=== PATIENT | male | born 1935 | race Caucasian/White ===

== ENCOUNTER → 2017-05-16 | Outpatient (CLI) | payer OTHER, MEDICARE | LOC: BHLMT 09:00 | PROVIDERS: ATTEND Internal Medicine Cardiovascular Disease | DX: R07.9 Chest pain, unspecified (principal); I25.10 Atherosclerotic heart disease of native coronary artery without angina pectoris | CPT/HCPCS: 78452; 93017; A9500 ==

== ENCOUNTER 2017-06-12 06:38 | Day surgery (SDC) | payer OTHER, MEDICARE ==
[2017-06-12] MEDS ORDERED: FAMOTIDINE 20 MG TAB PO ONE (06:43)
[2017-06-12] MEDS ORDERED: ASPIRIN EC 325 MG TAB PO ONE (06:43)
[2017-06-12] MEDS ORDERED: DIAZEPAM 5 MG TAB PO ONE (06:43)
[2017-06-12] MEDS ORDERED: NS 1,000 ML IV ONE (06:43)
[2017-06-12] MEDS ORDERED: diphenhydrAMINE 25 MG CAP PO ONE (06:43)
--- NOTE | 2017-06-12 07:11 | CPEKG ---
Heart Rate: 62 RR Interval: 968 P-R Interval: 200 QRSD Interval: 84 QT Interval: 424 QTC Interval: 431 P [place]: 65 QRS Granger: -58 T Wave Granger: 57 EKG Severity - ABNORMAL ECG - EKG Impression: SINUS RHYTHM EKG Impression: LEFT ANTERIOR FASCICULAR BLOCK EKG Impression: PROBABLE POSTERIOR INFARCT EKG Impression: NONSPECIFIC T ABNORMALITIES, LATERAL LEADS Electronically Signed By: Pat Bustamante 12-Jun-2017 16:58:37
[2017-06-12 07:23] LABS: PLATELET COUNT 159 10^3/uL (150-400)
[2017-06-12 07:31] LABS: INR 0.99 (0.83-1.16); PROTIME(PATIENT) 13.3 SEC (12.0-15.0)
[2017-06-12] MEDS ORDERED: MIDAZOLAM 2 MG/2 ML VIAL ONE (09:20)
[2017-06-12] MEDS ORDERED: fentaNYL 100 MCG/2 ML INJ ONE (09:20)
[2017-06-12] MEDS ORDERED: LIDOCAINE 1% 300 MG/30 ML SDV ONE (09:20)
[2017-06-12] MEDS ORDERED: IOPAMIDOL (ISOVUE-370) 150 ML BTL IV ONE (09:20)
--- NOTE | 2017-06-12 09:24 | PDPROPOC ---
Sedation Plan of Care Sedation Plan of Care: vital signs stable, mental status noted, patient educated of risks, benefits, alternatives, patient can tolerate sedation ASA Classification: ASA 1 Planned drugs: fentanyl, midazolam Mallampati Score: Class 1 Mallampati Reference Image: Patient passed 3-3-2 rule?: Yes
--- NOTE | 2017-06-12 09:24 | PDHPUP ---
History & Physical Update H&P update statement: This history and physical update is based on an assessment of the patient which was completed after admission or registration (within 24 hours), but prior to the surgery/procedure. H&P update: H&P reviewed & patient examined, no change in patient's condition since H&P completed
[2017-06-12] MEDS ORDERED: HEPARIN 10,000 UNIT/10 ML MDV (1,000 UNIT/ML) ONE (10:04)
[2017-06-12] MEDS ORDERED: ATROPINE SULFATE 1 MG/10 ML SYR IVP PRN (10:42)
[2017-06-12] MEDS ORDERED: OXYCODONE/APAP 5/325 TAB PO PRN (10:42)
[2017-06-12] MEDS ORDERED: HYDROCODONE/APAP 5/325 TAB PO PRN (10:42)
[2017-06-12] MEDS ORDERED: ONDANSETRON 4 MG/2 ML VIAL IVP PRN (10:42)
[2017-06-12] MEDS ORDERED: NITROGLYCERIN 0.4 MG BTL SL PRN (10:42)
--- NOTE | 2017-06-12 11:18 | PDDXCAT ---
Diagnostic Cath Note - . Date: 06/12/17 Dispensing And Measuring Optician: Malcolm Indication: other (Known coronary artery disease. Previous bypass surgery in 2001. 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 Abnormal stress myocardial perfusion imaging study suggesting inferior reversible ischemia.) - Procedure Access: right groin Procedure: left heart catheterization, coronary angiography, left ventriculogram , vein graft injection, SAUER injection, other (Aortic root angiography.) - Materials Left Heart Cath materials: standard multipack (JL4, JR4, pigtail), other (Right coronary bypass graft) - Findings-Left Heart Catheterization LM: Heavily calcified vessel. Bifurcates into the left anterior descending and circumflex distributions. This vessel is subtotaled distally. LAD: Severe proximal disease becoming occluded in the mid segment immediately after the origin of the 1st septal business process modeler and 1st diagonal branch. LCX: Small caliber vessel. There is a single obtuse marginal branch identified. Within the single obtuse marginal branch there is a 90% mid stenosis. RCA: Large caliber dominant vessel. The PDA and 2 posterolateral branches are identified. There is an eccentric 70% lesion in the mid vessel. Competitive flow is noted in the PDA. rSVG: There is an identified saphenous vein graft to the PDA. This contains minimal disease and is patent throughout its course to the PDA. Apparently, the patient has had 2 other bypass grafts. These were not identified either on attempts at selective injection or via a non selective aortic root shot. SAUER: This vessel is patent throughout its course. The distal anastomoses is in the mid LAD with good opacifications of the mid and distal LAD and single diagonal branch. ROSSANA: Visualized non selectively. This was not used in the patient's bypass surgery. EDP: The left ventricular pressure was 139/7/18 mmHg. LVEF: 60 65% without wall motion abnormalities. Wall motion: Normal. Complications: None. Estimated blood loss: <50ml Closure method: Angioseal Assessment: 1. Severe multivessel [place] coronary artery disease as described above which includes subtotal occlusion of the left main and a high-grade mid right coronary artery lesion. 2. Patent saphenous vein graft to the PDA and SAUER to the mid LAD. Occluded vein grafts likely to an obtuse marginal distribution and possibly the diagonal branch. 3. Normal left ventricular systolic function with an ejection fraction of 60 65% without focal wall motion abnormalities. 4. High normal left ventricular end-diastolic pressure. 5. 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 Plan: The patient will be treated with optimal medical therapy. At this time, percutaneous intervention would be high risk with likely little benefit. Intervention: None.
[2017-06-12] MEDS ORDERED: RANOLAZINE 500 MG TAB.ER PO SCH (21:00)
== END 2017-06-12 15:36 | disposition home or self-care (01) ==
LOC: FCATH 06:38
PROVIDERS: ATTEND Internal Medicine Cardiovascular Disease
PROC: B2151ZZ Fluoroscopy of Left Heart using Low Osmolar Contrast (ICD-10-PCS; principal; 2017-06-12)
PROC: 4A023N7 Measurement of Cardiac Sampling and Pressure, Left Heart, Percutaneous Approach (ICD-10-PCS; principal; 2017-06-12)
PROC: B2131ZZ Fluoroscopy of Multiple Coronary Artery Bypass Grafts using Low Osmolar Contrast (ICD-10-PCS; principal; 2017-06-12)
DX: I25.119 Atherosclerotic heart disease of native coronary artery with unspecified angina pectoris (principal); R94.39 Abnormal result of other cardiovascular function study; E11.9 Type 2 diabetes mellitus without complications; Z82.49 Family history of ischemic heart disease and other diseases of the circulatory system; Z95.1 Presence of aortocoronary bypass graft; Z79.82 Long term (current) use of aspirin; E78.5 Hyperlipidemia, unspecified
CPT/HCPCS: C1760; J1644; J2250; J3010; Q9967